=== PATIENT | male | born 1985 | race African-American/Black ===

== ENCOUNTER 2018-11-29 05:22 | Emergency (ER) | payer OTHER ==
[~2018-11-29] VITALS: Ht 165.1 cm; Wt 73.5 kg
[~2018-11-29 05:22] MED LIST: BENADRYL50 MG PO; MILLIPRED DP5 M1 PO; PERCOCET 5-3251 EACH PO; PERCOCET 5/3251 TAB PO
[2018-11-29] MEDS ORDERED: CEFADROXIL500 MG PO (06:37)
== END 2018-11-29 06:46 | disposition home or self-care (01) ==
LOC: ER 05:22
DX: S61.421A Laceration with foreign body of right hand, initial encounter (principal); W45.8XXA Other foreign body or object entering through skin, initial encounter; Y93.89 Activity, other specified; Y92.89 Other specified places as the place of occurrence of the external cause; Y99.8 Other external cause status

== ENCOUNTER 2021-05-25 17:36 | Emergency (ER) | payer OTHER ==
[~2021-05-25] VITALS: Ht 167.6 cm; Wt 77.1 kg
[~2021-05-25 17:36] MED LIST changes: +CEFADROXIL500 MG PO
[2021-05-25] MEDS ORDERED: DICLOFENAC SODI75 MG PO (21:57)
== END 2021-05-25 22:02 | disposition home or self-care (01) ==
LOC: ER 17:36
DX: S43.085A Other dislocation of left shoulder joint, initial encounter (principal); S00.83XA Contusion of other part of head, initial encounter; W10.8XXA Fall (on) (from) other stairs and steps, initial encounter; Y92.89 Other specified places as the place of occurrence of the external cause

== ENCOUNTER → 2021-06-30 | Emergency (ER) | payer OTHER ==
[~2021-06-30] VITALS: Ht 167.6 cm; Wt 77.1 kg
[~2021-06-30] MED LIST changes: +DICLOFENAC SODI75 MG PO
== END | disposition home or self-care (01) ==
LOC: ER 10:38
DX: S42.251G Displaced fracture of greater tuberosity of right humerus, subsequent encounter for fracture with delayed healing (principal); W19.XXXD Unspecified fall, subsequent encounter